=== PATIENT | female | born 1955 | race Caucasian/White ===

== ENCOUNTER → 2018-03-13 | Outpatient (CLI) | payer OTHER ==
--- NOTE | 2018-03-13 16:11 | RADIOLOGY IMAGING REPORT ---
FACILITY: [facility] PATIENT NAME: Jennifer Roy : 1955 MR: [id number] V: [id number] EXAM DATE: ORDERING PHYSICIAN: IRENA PENDLETON TECHNOLOGIST: Location: [facility] Patient: Jennifer Roy : 1955 Visit/Account:[id number] Date of Sevice: 03/13/2018 ADDENDUM #1 The impression should state that this is the left clavicle, not the right clavicle. Report Dictated By: Isaias Orosco MD at 03/14/2018 10:56 AM Report E-Signed By: Isaias Orosco MD at 03/14/2018 10:57 AM ORIGINAL REPORT SHOULDER LEFT W/O CONTRAST HISTORY: Clavicle fracture TECHNIQUE: CT images were obtained through the left shoulder without intravenous contrast. 2D lopes l and sagittal images obtained from the initial data. One of the following dose optimization techniqu es was utilized in the performance of this exam: automated exposure control; adjustment of the mA and /or kv according to patient size; or use of iterative reconstruction technique. Specific details can be referenced in the facility's radiology CT exam operational policy. CONTRAST: None COMPARISON: X-ray 03/06/2018 FINDINGS: Glenohumeral joint: No acute fracture or dislocation. No significant degenerative changes. No evidenc e of AVN. No joint effusion No loose body. Benign-appearing cystic change posteriorly within the isaias ral head. AC joint: The AC joint is normal. Soft tissues: Normal Other findings: Comminuted, mildly displaced overriding fracture of the medial aspect of the right cl avicle extending into the sternoclavicular joint IMPRESSION: 1. Comminuted, mildly displaced, overriding fracture of the medial aspect of the right clavicle exten ding into the sternoclavicular joint. Report Dictated By: Isaias Orosco MD at 03/13/2018 3:59 PM Report E-Signed By: Isaias Orosco MD at 03/13/2018 4:05 PM WSN:[id number]
== END ==
LOC: CT 07:11
PROVIDERS: ATTEND Orthopaedic Surgery
DX: S42.022A Displaced fracture of shaft of left clavicle, initial encounter for closed fracture (principal)

== ENCOUNTER → 2018-06-06 | Outpatient (CLI) | payer OTHER ==
--- NOTE | 2018-06-09 17:10 | RT HOLTER TEST ---
[place] [facility] [place] ELIZABETH MCCALLUM : [id number] MR: [id number] V: [id number] EXAM DATE: ORDERING PHYSICIAN: GILDARDO ROCHA TECHNOLOGIST: MANSOOR Hook-up date: 2018-06-06 13:16:00 Duration: 24:00:00 Test Indications: int. palpitations Medications: [id number] QRS complexes 121 Ventricular ectopics which represent <1 % of total QRS comp. 2 Supraventricular ectopics which represent <1 % of total QRS comp. * Paced QRS complexes which represent % of total QRS comp. VENTRICULAR ECTOPY 121 Isolated 58 Bigeminal Cycles 0 Couplets 0 Runs 0 Beats in Runs * Beats LONGEST at * BPM at :: -- * Beats FASTEST at * BPM at :: -- SUPRAVENTRICULAR ECTOPY 2 Isolated 0 Couplets 0 Runs 0 Beats in Runs * Beats LONGEST at * BPM at :: -- * Beats FASTEST at * BPM at :: -- HEART RATES 62 MIN at 02:50:29 2018-06-07 83 AVG 162 MAX at 06:26:26 2018-06-07 LONGEST RR 1.136 secs at 02:37:16 2018-06-07 S-T LEVELS Channel 1 -12.800 mm MIN at 13:16:00 2018-06-06 -12.800 mm MAX at 13:16:00 2018-06-06 Channel 2 -12.800 mm MIN at 13:16:00 2018-06-06 -12.800 mm MAX at 13:16:00 2018-06-06 Channel 3 -12.800 mm MIN at 13:16:00 2018-06-06 -12.800 mm MAX at 13:16:00 2018-06-06 Very rare supraventricular ectopy. No couplets, triplets, runs. Rare ventricular ectopy with an episode of bigeminy. No couplets or runs were recorded. Intermittent ST-T changes were recorded during the monitoring. No pauses were recorded. Confirmed by COLE CARREON ([id number]) on 06/09/2018 5:10:27 PM Referred By: Overread By: COLE CARREON
== END ==
LOC: RESP 03:00
PROVIDERS: ATTEND Nurse Practitioner Family
DX: R00.2 Palpitations (principal)
CPT/HCPCS: 93225; 93226